=== PATIENT | female | born 1995 | race Caucasian/White ===

== ENCOUNTER 2019-12-28 23:45 | Emergency (ER) | payer BC ==
--- NOTE | 2019-12-28 23:47 | ED ---
Female Urogenital HPI - General Stated complaint: Vaginal Bleeding Time Seen by Provider: 12/28/19 23:46 - History of Present Illness Initial comments: Carolyne is a previously healthy 24-year-old female who presents to our emergency department as a transfer from an outside facility for further evaluation of a possible ectopic . Patient has an IUD in place her last menstrual period was November 10 she had a positive test today she developed some cramping and vaginal bleeding she did have some right lower quadrant discomfort however she reports that resolved hours ago. She was evaluated at the outside facility where she was found to be hemodynamically stable have a hemoglobin of 13.5 a beta hCG of 204 and an ultrasound that could identify no intrauterine or ectopic pregnancies. There is scant free fluid in the cul-de-sac. Patient transferred here for further evaluation. - Related Data Home Medications Medication Instructions Recorded Confirmed Albuterol Inhaler (Mhu) [Ventolin 1 - 2 puff INHALATION RT-Q6H PRN 01/08/16 01/08/16 Hfa Inhaler] Previous Rx's Medication Instructions Recorded Nitrofurantoin Monohyd/M-Cryst 100 mg PO Q12HR 7 Days cap 01/08/16 [Macrobid] Allergies Allergy/AdvReac Type Severity Reaction Status Date / Time No Known Allergies Allergy Verified 01/08/16 17:06 Review of Systems ROS Statement: Those systems with pertinent positive or pertinent negative responses have been documented in the HPI. ROS Other: All systems not noted in ROS Statement are negative. Past Medical History Past Medical History: Seizure Disorder History of Any Multi-Drug Resistant Organisms: MRSA Date of last positivie culture/infection: 2014 MDRO Source:: leg Past Surgical History: Orthopedic Surgery Past Psychological History: Depression Past Alcohol Use History: None Reported Past Drug Use History: Marijuana General Exam - General Exam Comments Initial Comments: Physical Exam GENERAL: Patient is well-developed and well-nourished. Patient is nontoxic and well-hydrated and is in no distress. HENT: Normocephalic, Atraumatic. EYES: PERRL, EOMI PULMONARY: Unlabored respirations. CARDIOVASCULAR: RRR Warm and well perfused extremities ABDOMEN: Soft, nontender Bedside ultrasound reveals no free fluid in the abdomen SKIN: No rashes or bruising : Deferred NEUROLOGIC: Alert and oriented Normal speech Normal gait MUSCULOSKELETAL: Moving all extremities with no apparent injury PSYCHIATRIC: No SI/HI Course Vital Signs 12/28/19 12/29/19 23:47 01:31 Temperature 98 F Pulse Rate 100 90 Respiratory 18 18 Rate Blood Pressure 152/87 131/93 O2 Sat by Pulse 99 98 Oximetry Medical Decision Making - Medical Decision Making Patient was seen and evaluated history was obtained from outside medical record and the patient Patient with positive test hCG is 400 ultrasound with no acute findings Bedside ultrasound with no free fluid in the abdomen Patient has been pain-free for a number of hours at this time there is no signs of ruptured ectopic I did discuss with the patient in detail that this early in the she could have an ectopic they cannot yet be identified and if she has any worsening pain or develops any new or concerning symptoms she is return to the ER immediately. Patient has follow-up with her OB scheduled for Monday of this week and is comfortable at this time with plan for discharge and doesn't quite understand why she was transferred here from outside facility. Patient does note that she is O- and had not received RhoGAM yet in this which she has received and previous . Blood type and RhoGAM were ordered. Patient remained asymptomatic throughout her stay in ER, she is comfortable with the plan for discharge home and follow-up with OB. Close return parameters were discussed. - Lab Data Lab Results 12/29/19 12/29/19 Range/Units 00:18 00:18 Blood Type O Negative Blood Type Confirm O Negative Blood Type Recheck No Previous Record Bld Type Recheck Status CABO Indicated Antibody Screen NEGATIVE Disposition Clinical Impression: Vaginal bleeding affecting early Disposition: HOME SELF-CARE Condition: Stable Additional Instructions: You have a positive test and no identifiable on ultrasound, should she develop any worsening pain or vaginal bleeding any to return to the emergency department immediately as an ectopic has not been absolutely ruled out. Regardless of symptoms follow-up with your OB Dr. Centeno on Monday as scheduled. Is patient prescribed a controlled substance at d/c from ED?: No Referrals: Michael Perez MD [Primary Care Provider] - 1-2 days
[2019-12-28 23:52] VITALS: RESP 18; TEMP 98
[2019-12-29] MEDS ORDERED: Rhogam IMMUNE GLOBULIN 1,500 UNIT/1 ML IM ONE (00:19)
[2019-12-29 01:33] VITALS: BP 131/93; PULSE 90
== END 2019-12-29 01:45 | disposition home or self-care (01) ==
LOC: EC 23:45
DX: O20.9 Hemorrhage in early pregnancy, unspecified (principal); Z3A.01 Less than 8 weeks gestation of pregnancy; Z86.14 Personal history of Methicillin resistant Staphylococcus aureus infection
CPT/HCPCS: 86900; 86901; 86850; 96372; 99284; J2791

== ENCOUNTER → 2020-04-21 | Outpatient (CLI) | payer BC ==
--- NOTE | 2020-04-21 17:17 | EEG ---
ELECTROENCEPHALOGRAM REPORT DATE OF SERVICE: 04/21/2020 CLINICAL HISTORY: This is a 24-year-old woman with a reported history of concussion with a loss of consciousness and seizure. This video EEG was obtained to evaluate for seizure and epileptiform activity. RELEVANT MEDICATION CURRENTLY: Unknown current anti-epileptic drug. EEG TYPE: A 21-channel EEG was performed with video using the 10/20 electrode placement system. DESCRIPTION: Wakefulness and drowsiness are obtained. During wakefulness there is a posterior- dominant rhythm of low to moderate voltage, reactive, well modulated, of 9.5 to 10.5 hertz activity. During drowsiness there is slowing in attenuation of the background activity. There was no physiological stage II sleep. Interictal: There are occasional to frequent moderate to high voltage generalized 3-4 hertz spikes to polyspike/sharp and wave activity lasting 1-2 seconds throughout the study without any evolution to seizures. Ictal: None. Photic stimulation did not evoke a posterior driving response. During the photic stimulation, the epileptiform discharges noted above were seen, and it was not necessarily during the photic stimulation; at times it was in between. But no evolution to seizures. Hyperventilation was performed and no seizure was seen. There were epileptiform discharges, as noted above without hyperventilation to seizure. CLINICAL INTERPRETATION: This is an abnormal routine EEG. The generalized epileptiform discharges increase the risk of generalized epilepsy and increase the risk of status epilepticus. There are no focal slowing or seizure during this study. If there is any concern about seizure, recommend long-term EEG or even epilepsy monitoring unit (EMU). Clinical correlation is recommended. MMKYRA / NATALIAN: [id number] / HANY
== END | disposition home or self-care (01) ==
LOC: NEUROMAIN 04-20 07:55
PROVIDERS: ATTEND Family Medicine
DX: G40.909 Epilepsy, unspecified, not intractable, without status epilepticus (principal)
CPT/HCPCS: 95816